=== PATIENT | female | born 1985 | race Hispanic/Latino ===

== ENCOUNTER 2020-08-14 17:36 | Emergency (ER) | payer SELFPAY ==
--- NOTE | 2020-08-14 20:24 | RAD REPORT ---
EXAM DESCRIPTION: [facility] Single View08/14/2020 7:50 pm CLINICAL HISTORY: cough COMPARISON: none FINDINGS: The lungs appear clear of acute infiltrate. The heart is normal size IMPRESSION: No acute abnormalities displayed
--- NOTE | 2020-08-14 20:37 | ER ---
Nurse's Notes [facility] Name: Suzanne Acuna Age: 34 yrs Sex: Female : 1985 Arrival Date: 08/14/2020 Time: 17:38 Bed 14 Private MD: Diagnosis: Coronavirus infection, unspecified Presentation: 08/14 17:52 Chief complaint: Patient states: Dry cough, fever, weakness, fatigue since Wednesday. ll1 Covid positive result yesterday at [facility]. CP/back pain for 2 days. + SOB also. Fever 100.4 at home. No N/V/D. Coronavirus screen: Client denies travel out of the [place] in the last 14 days. cough unrelated to allergies, difficulty breathing, fatigue, fever, headache, shaking with chills, shortness of breath, Client presents with at least one sign or symptom that may indicate coronavirus-19. Standard/surgical mask placed on the client. Client reports previous positive COVID test result. Ebola Screen: Patient denies travel to an Ebola-affected area in the 21 days before illness onset. Initial Sepsis Screen: Does the patient meet any 2 criteria? HR > 90 bpm. No. Patient's initial sepsis screen is negative. Does the patient have a suspected source of infection? Yes: Productive cough/pneumonia. Risk Assessment: Do you want to hurt yourself or someone else? Patient reports no desire to harm self or others. Onset of symptoms was August 12, 2020. 17:52 Method Of Arrival: Ambulatory ll1 17:52 Acuity: WILIAM 3 ll1 Historical: - Allergies: 17:56 No Known Allergies; ll1 - PMHx: 17:56 None; ll1 - PSHx: 17:56 ; ll1 - Immunization history:: Flu vaccine is up to date. - Social history:: Smoking status: Patient denies any tobacco usage or history of. Screenin:45 Abuse screen: Denies threats or abuse. Nutritional screening: No deficits noted. jb4 Tuberculosis screening: No symptoms or risk factors identified. Fall Risk None identified. Assessment: 18:20 Reassessment: Received VO from Dr Guzmán for CXR. sv 19:45 General: Appears in no apparent distress. comfortable, Behavior is calm, cooperative, jb4 appropriate for age. Pain: Complains of pain in chest Pain radiates to back Pain currently is 8 out of 10 on a pain scale. Quality of pain is described as pressure, Pain began 1 day ago. Neuro: Level of Consciousness is awake, alert, obeys commands, Oriented to person, place, time, situation. Cardiovascular: Patient's skin is warm and dry. Respiratory: Airway is patent Respiratory effort is even, unlabored, Respiratory pattern is regular, symmetrical. GI: No signs and/or symptoms were reported involving the gastrointestinal system. : No signs and/or symptoms were reported regarding the genitourinary system. EENT: No signs and/or symptoms were reported regarding the EENT system. Derm: Skin is intact, Skin is pink, warm \T\ dry. Musculoskeletal: Circulation, motion, and sensation intact. Range of motion: intact in all extremities. 20:57 Reassessment: Patient appears in no apparent distress at this time. Patient and/or jb4 family updated on plan of care and expected duration. Pain level reassessed. Patient is alert, oriented x 3, equal unlabored respirations, skin warm/dry/pink. Vital Signs: 17:52 BP 112 / 80; Pulse 96; Resp 18; Temp 98.2(O); Pulse Ox 97% ; Weight 59.42 kg; Height 4 ll1 ft. 11 in. (149.86 cm); Pain 8/10; 19:34 BP 110 / 66; Pulse 88; Resp 18; Temp 98.2(O); Pulse Ox 100% on R/A; Pain 0/10; jp3 20:45 BP 108 / 75; Pulse 79; Resp 16; Pulse Ox 100% on R/A; jb4 17:52 Body Mass Index 26.46 (59.42 kg, 149.86 cm) ll1 ED Course: 17:38 Patient arrived in ED. mr 17:55 Triage completed. ll1 17:56 Arm band placed on. ll1 19:24 Gavi Sprague F[facility]-C is [facility]. kb 19:25 Binh Lozada MD is Attending Physician. kb 19:33 Kostas Madrigal, MARIO is Primary Nurse. jb4 19:34 Bed in low position. Call light in reach. Side rails up X 1. Warm blanket given. Verbal jp3 reassurance given. Pulse ox on. NIBP on. 19:34 Patient maintains SpO2 saturation greater than 95% on room air. jp3 19:56 Chest Single View In Process Unspecified. EDMS 20:27 refueling rampman on. jp3 20:27 EKG done, by ED staff, reviewed by Gavi DAVIS. jp3 20:58 No provider procedures requiring assistance completed. Patient did not have IV access jb4 during this emergency room visit. Administered Medications: 20:57 Drug: [place] 5 mg-325 mg 1 tabs Route: PO; jb4 20:57 Follow up: Response: Medication administered at discharge. jb4 Outcome: 20:35 Discharge ordered by . kb 20:58 Discharged to home ambulatory, with family. jb4 20:58 Condition: stable 20:58 Discharge instructions given to patient, family, Instructed on discharge instructions, follow up and referral plans. Demonstrated understanding of instructions, follow-up care. 20:59 Patient left the ED. jb4 Signatures: Dispatcher [employer] [facility] Gavi Sprague FNP-C FNP-Chery Larose, RN RN Valentina Martins James RN RN jb4 Justino Tom jp3 Ludivina Arrieta, RN RN ll1
--- NOTE | 2020-08-14 20:37 | EDPHYS ---
Physician Documentation [facility] Name: Suzanne Acuna Age: 34 yrs Sex: Female : 1985 Arrival Date: 08/14/2020 Time: 17:38 Bed 14 Private MD: ED Physician Binh Lozada HPI: 08/14 20:37 This 34 yrs old Female presents to ER via Ambulatory with complaints of Chest kb Pain, Cough. 20:37 The patient or guardian reports cough, that is intermittent, with no sputum, difficulty kb breathing. Onset: The symptoms/episode began/occurred 3 day(s) ago. Severity of symptoms: At their worst the symptoms were moderate, in the emergency department the symptoms are unchanged. Modifying factors: The symptoms are alleviated by nothing, the symptoms are aggravated by nothing. Associated signs and symptoms: Pertinent positives: chest pain. The patient has not experienced similar symptoms in the past. The patient has not recently seen a physician. Historical: - Allergies: 17:56 No Known Allergies; ll1 - PMHx: 17:56 None; ll1 - PSHx: 17:56 ; ll1 - Immunization history:: Flu vaccine is up to date. - Social history:: Smoking status: Patient denies any tobacco usage or history of. ROS: 20:36 Constitutional: Negative for fever, chills, and weight loss, Abdomen/GI: Negative for kb abdominal pain, nausea, vomiting, diarrhea, and constipation, Back: Negative for injury and pain, MS/Extremity: Negative for injury and deformity, Skin: Negative for injury, rash, and discoloration, Neuro: Negative for headache, weakness, numbness, tingling, and seizure. 20:36 Cardiovascular: Positive for chest pain, Negative for edema, orthopnea, palpitations, paroxysmal nocturnal dyspnea. 20:36 Respiratory: Positive for cough, shortness of breath. Exam: 20:37 Constitutional: This is a well developed, well nourished patient who is awake, alert, kb and in no acute distress. Head/Face: Normocephalic, atraumatic. Chest/axilla: Normal chest wall appearance and motion. Nontender with no deformity. No lesions are appreciated. Cardiovascular: Regular rate and rhythm with a normal S1 and S2. No gallops, murmurs, or rubs. Normal PMI, no JVD. No pulse deficits. Respiratory: Lungs have equal breath sounds bilaterally, clear to auscultation and percussion. No rales, rhonchi or wheezes noted. No increased work of breathing, no retractions or nasal flaring. Abdomen/GI: Soft, non-tender, with normal bowel sounds. No distension or tympany. No guarding or rebound. No evidence of tenderness throughout. Skin: Warm, dry with normal turgor. Normal color with no rashes, no lesions, and no evidence of cellulitis. MS/ Extremity: Pulses equal, no cyanosis. Neurovascular intact. Full, normal range of motion. Neuro: Awake and alert, GCS 15, oriented to person, place, time, and situation. Cranial nerves II-XII grossly intact. Motor strength 5/5 in all extremities. Sensory grossly intact. Cerebellar exam normal. Normal gait. 20:37 ECG was reviewed by the Attending Physician. kb Vital Signs: 17:52 BP 112 / 80; Pulse 96; Resp 18; Temp 98.2(O); Pulse Ox 97% ; Weight 59.42 kg; Height 4 ll1 ft. 11 in. (149.86 cm); Pain 8/10; 19:34 BP 110 / 66; Pulse 88; Resp 18; Temp 98.2(O); Pulse Ox 100% on R/A; Pain 0/10; jp3 20:45 BP 108 / 75; Pulse 79; Resp 16; Pulse Ox 100% on R/A; jb4 17:52 Body Mass Index 26.46 (59.42 kg, 149.86 cm) ll1 MDM: 19:25 Patient medically screened. kb 20:35 Data reviewed: vital signs, nurses notes. Data interpreted: Pulse oximetry: on room air kb is 100 %. Interpretation: normal. Counseling: I had a detailed discussion with the patient and/or guardian regarding: the historical points, exam findings, and any diagnostic results supporting the discharge/admit diagnosis, radiology results, the need for outpatient follow up, a family practitioner, to return to the emergency department if symptoms worsen or persist or if there are any questions or concerns that arise at home. 08/14 19:56 Order name: Chest Single View; Complete Time: 20:34 EDMS 08/14 20:03 Order name: EKG; Complete Time: 20:04 kb 08/14 20:03 Order name: EKG - Nurse/Tech; Complete Time: 20:27 kb EC:37 Rate is 76 beats/min. Rhythm is regular. QRS [place] is Normal. IA interval is normal at kb 128 msec. QRS interval is normal at 82 msec. QT interval is normal at 366 msec. Administered Medications: 20:57 Drug: [place] 5 mg-325 mg 1 tabs Route: PO; jb4 20:57 Follow up: Response: Medication administered at discharge. jb4 Disposition: 08/15 05:56 Co-signature as Attending Physician, Binh Lozada MD I agree with the assessment and gio plan of care. Disposition: 08/14/20 20:35 Discharged to Home. Impression: Coronavirus infection, unspecified. - Condition is Stable. - Discharge Instructions: COVID-19. - Medication Reconciliation Form, Thank You Letter, Antibiotic Education, Prescription Opioid Use form. - Follow up: Emergency Department; When: As needed; Reason: Worsening of condition. Follow up: Private Physician; When: 2 - 3 days; Reason: Recheck today's complaints, Continuance of care, Re-evaluation by your physician. Signatures: Dispatcher [employer] [facility] Gavi Sprague, [employer]-C [employer]-Binh Shipman MD MD cha Bryson, James RN RN jb4 Ludivina Arireta RN RN ll1 Corrections: (The following items were deleted from the chart) 08/14 19:56 18:21 Chest Pa And Lat (2 Views)+[email or web address] ordered. [facility] EDCA 20:59 20:35 08/14/2020 20:35 Discharged to Home. Impression: Coronavirus infection, jb4 unspecified. Condition is Stable. Forms are Medication Reconciliation Form, Thank You Letter, Antibiotic Education, Prescription Opioid Use. Follow up: Emergency Department; When: As needed; Reason: Worsening of condition. Follow up: Private Physician; When: 2 - 3 days; Reason: Recheck today's complaints, Continuance of care, Re-evaluation by your physician. kb
[2020-08-14 21:04] VITALS: TEMP 98.2
[2020-08-14 21:05] VITALS: O2SAT 100
[2020-08-14 21:06] VITALS: BP 108/75
[2020-08-14] MEDS ORDERED: HYDROCODONE/APAP 5/325 MG TAB ONE (21:10)
== END 2020-08-14 20:59 | disposition home or self-care (01) ==
LOC: ER 17:36
DX: U07.1 COVID-19 (principal); R05 Cough
CPT/HCPCS: 71045; 93005; 99285